=== PATIENT | female | born 1935 | race Caucasian/White ===

== ENCOUNTER → 2018-11-25 10:47 | Outpatient (CLI) | payer MEDICARE, OTHER, SELFPAY ==
--- NOTE | 2018-11-25 10:53 | ART_ITS ---
Reason For Study: PVD Procedure A bilateral lower extremity continuous wave Doppler with analog waveform analysis,segmental pressures,and ankle brachial indexes without exercise. Left Segmental Pressures Left brachial= 181mmHg. Left posterior tibial artery = 186mmHg. Left dorsalis pedis artery = 207mmHg. Left digit = 118 mmHg. The left dorsalis pedis waveforms are triphasic. The left posterior tibial artery waveforms are triphasic. Right Segmental Pressures Right brachial= 197mmHg. Right posterior tibial artery = 195mmHg. Right dorsalis pedis artery = 206mmHg. Right digit = 118 mmHg. The right dorsalis pedis waveforms are triphasic. The right posterior tibial artery waveforms are triphasic. Indices The right ankle brachial index by the dorsalis pedis is 1.05. The right ankle brachial index by the posterior tibial artery is 0.99. The right digital-brachial index is 0.60. The left ankle brachial index by the dorsalis pedis is 1.05. The left ankle brachial index by the posterior tibial artery is 0.94. The left digital-brachial index is 0.60. Interpretation Summary Triphasic Doppler waveforms are noted at ankle level bilaterally. Pulse-volume waveform amplitudes are satisfactory at all levels bilaterally, including low thigh, calf, ankle, and digital levels. Resting ankle-brachial indices appear bilaterally normal. Digital-brachial indices are mildly diminished bilaterally. Arterial flow appears to be relatively normal to ankle level bilaterally. There is evidence of mild impairment of arterial flow at digital level bilaterally, suggesting the presence mild, distal, small-vessel arterial occlusive disease bilaterally. Ordering Physician: Tone Olvera Referring Physician: Tone Olvera Performed By: Jaja Miller RVT and Student
== END ==
PROVIDERS: Family Provider Family Medicine; PCP Family Medicine; Referring Provider Family Medicine; Visit Provider Family Medicine
DX: I73.9 Peripheral vascular disease, unspecified (principal)
CPT/HCPCS: 93923